=== PATIENT | female | born 1990 | race African-American/Black ===

== ENCOUNTER 2020-08-31 10:48 | Emergency (ER) | payer OTHER ==
[~2020-08-31] VITALS: Ht 165.1 cm; Wt 61.2 kg
[2020-08-31 10:50] VITALS: BP_SYST 128
[2020-08-31 11:48] LABS: BILIRUBIN,URINE NEGATIVE (NEGATIVE); BLOOD, URINE NEGATIVE (NEGATIVE); CLARITY/URINE CLEAR (CLEAR); COLOR,URINE YELLOW (YELLOW); GLUCOSE,URINE NEGATIVE (NEGATIVE); KETONES,URINE NEGATIVE (NEGATIVE); LEUKOCYTE ESTERASE ,URINE NEGATIVE (NEGATIVE); NITRITE, URINE NEGATIVE (NEGATIVE); PROTEIN URINE NEGATIVE (NEGATIVE); UROBILINOGEN,URINE 0.2 (0.2-1.0)
[2020-08-31 13:16] VITALS: BP_SYST 128
== END 2020-08-31 13:17 | disposition home or self-care (01) ==
LOC: SED 10:48
DX: O26.892 Other specified pregnancy related conditions, second trimester (principal); R10.30 Lower abdominal pain, unspecified; Z3A.16 16 weeks gestation of pregnancy
CPT/HCPCS: 76805-TC; 81003; 81025; 99284